=== PATIENT | female | born 1985 | race Caucasian/White ===

== ENCOUNTER 2017-01-20 08:00 | Inpatient (IN) | payer OTHER ==
[~2017-01-20 08:00] MED LIST: ELECTROLYTE-148 SOLN 1,000 ML IV ONE
[2017-01-20] MEDS ORDERED: ELECTROLYTE-148 SOLN 1,000 ML IV SCH (09:00)
[2017-01-20] MEDS ORDERED: CITRIC ACID/SODIUM CITRATE 30 ML UNIT-DOSE CUP PO ONE (09:00)
[2017-01-20 09:02] VITALS: BMI 34.5
--- NOTE | 2017-01-20 09:14 | HP ---
Past Medical History - Admission Chief Complaint: Here for scheduled repeat c section. History of Present Illness: 31 y/o with SIUP at 39.2 weeks gestation here for scheduled repeat c section. EDC 01/25/17 by [facility] ultrasound. Pt with uncomplicated care. History Source: Patient, Medical Record Limitations to Obtaining History: No Limitations - Past Medical History Cardiovascular: No: CAD, HTN Pulmonary: No: Asthma, COPD Gastrointestinal: No: GERD, Irritable Bowel Disease Reproductive: No: Fibroids, PID ...: 4 ...Para: 3 ...Term: 3 ...: 0 ...Spon : 0 ...Induced : 0 ...Multiple Gestation: 0 ...LMP: 04/07/16 ... Weeks Gestation by Dates: 41.1 ...EDC by Dates: 01/12/17 ...EDC by Sono: 01/20/17 Additional OB History: EDC 01/25/17 by [facility] ultrasound. Heme/Onc: No: Anemia, Sickle Cell Disease Infectious Disease: No: HIV, MRSA, STD's Psych: No: Anxiety, Bipolar, Depression ENT: No: Allergic Rhinitis Endocrine: No: Diabetes Mellitus, Hypothyroidism - Past Surgical History Past Surgical History: Yes: None Hx Myomectomy: No Hx Transabdominal Cerclage: No - Smoking History Smoking history: Never smoked Have you smoked in the past 12 months: No Aproximately how many cigarettes per day: 0 - Alcohol/Substance Use Hx Alcohol Use: No History of Substance Use: reports: None - Social History Usual Living Arrangement: Yes: With Spouse ADL: Independent History of Recent Travel: No Home Medications - Allergies Allergies/Adverse Reactions: Allergies Allergy/AdvReac Type Severity Reaction Status Date / Time No Known Allergies Allergy Verified 01/20/17 08:39 - Home Medications Home Medications: Ambulatory Orders Pnv95/Ferrous Fumarate/FA [ Tablet] 1 each PO DAILY 04/25/12 Review of Systems - Review of Systems Constitutional: reports: No Symptoms Eyes: reports: No Symptoms HENT: reports: No Symptoms Neck: reports: No Symptoms Cardiovascular: reports: No Symptoms Respiratory: reports: No Symptoms Gastrointestinal: reports: No Symptoms Genitourinary: reports: No Symptoms Breasts: reports: No Symptoms Reported Musculoskeletal: reports: No Symptoms Integumentary: reports: No Symptoms Neurological: reports: No Symptoms Endocrine: reports: No Symptoms Hematology/Lymphatic: reports: No Symptoms Physical Exam - Maternity Vital Signs: Vital Signs Temperature 98.2 F 01/20/17 08:30 Pulse Rate 102 H 01/20/17 08:30 Respiratory Rate 20 01/20/17 08:30 Blood Pressure 111/69 01/20/17 08:30 O2 Sat by Pulse Oximetry (%) Constitutional: Yes: Well Nourished, No Distress, Calm Eyes: Yes: Conjunctiva Clear, EOM Intact HENT: Yes: Atraumatic, Normocephalic Neck: Yes: Supple, Trachea Midline Cardiovascular: Yes: Regular Rate and Rhythm Lungs: Clear to auscultation - Abdominal Exam/OB Fundal Height: 40 Number of Fetuses: Single Presentation: Vertex Contractions: No Category: I Accelerations: None Decelerations: None - Vaginal Exam/OB Vaginal Bleediing: No Amniotic Membrane Status: Intact Nitrazine Test: Positive Presentation: Vertex/Position - Physical Exam Psychiatric: Yes: Alert, Oriented Hemorrhage Risk Assessment - Risk Factors Medium Risk Factors: Yes: Prior , uterine surgery,or multiple laparotomies High Risk Factors: Yes: None Risk Score: 1 Risk Level: Medium Risk Problem List - Problems (1) Term Code(s): Z34.80 - ENCOUNTER FOR SUPRVSN OF NORMAL , UNSP TRIMESTER (2) Term , repeat Code(s): Z34.90 - ENCNTR FOR SUPRVSN OF NORMAL , UNSP, UNSP TRIMESTER (3) History of delivery Code(s): Z98.891 - HISTORY OF UTERINE SCAR FROM PREVIOUS SURGERY (4) Anemia Code(s): D64.9 - ANEMIA, UNSPECIFIED Assessment/Plan 31 y/o with SIUP at 39.2 weeks here for scheduled repeat c section and tubal sterilization - AFVSS - Hgb 9.6 preop - NPO, SCDs - nursery and anesthesia aware - GBS positive - HIV negative
[2017-01-20] MEDS ORDERED: ONDANSETRON 4 MG/2 ML VIAL IVPB PRN (09:55)
[2017-01-20] MEDS ORDERED: morphine SULFATE/Preservative Free 0.5 MG/ML (1cc Syringe) EP ONE (09:55)
[2017-01-20] MEDS ORDERED: IBUPROFEN 800 MG/8 ML IJ IVPB PRN (09:56)
--- NOTE | 2017-01-20 10:43 | PN ---
Progress Note (short form) - Note Progress Note: Attended C/S for this 31 y/o with SIUP at 39.2 weeks gestation here for scheduled repeat c section. EDC 01/25/17 by [facility] ultrasound. Pt with uncomplicated care. PNL- neg except for GBS= Pos. No ROM/ in Labor cried soon after suctioned/dried cord 3V, score 9/9 PE: infant alert active, no id distress Normocephalic, AFOF, No cleft lip/Palate No heart murmur, B/L good air entry No Organomegaly, nl Male FROM hip exam. Good tone and activity Term male RNBC Watch for resp distress Encourage Bf/ Bonding
[2017-01-20] MEDS ORDERED: TUBERCULIN PPD 5 TU/0.1ML SYRINGE (IN PATIENT USE ONLY) ID ONE (11:00)
[2017-01-20] MEDS ORDERED: METHYLERGONOVINE MALEATE 0.2 MG/1 ML AMP IM PRN (11:07)
[2017-01-20] MEDS ORDERED: oxyCODONE HCL 5 MG TABLET PO PRN (11:07)
[2017-01-20 11:13] LABS: VENOUS BLOOD GAS HCO3 24.8 meq/L (19-25); VENOUS PH 7.37 (7.32-7.42)
[2017-01-20] MEDS: OXYTOCIN 20 UNITS in 0.9% NS 1,000 ML IV SCH ×2 (11:15→17:39)
--- NOTE | 2017-01-20 11:26 | OP ---
Operative Note - Note: Operative Date: 01/20/17 Pre-Operative Diagnosis: Prior delivery x 3, single IUP, desires sterilization Operation: repeat delivery, bilateral salpingectomy Findings: lower uterine segment window normal b/l tubes and ovaries Post-Operative Diagnosis: Same as Pre-op Surgeon: Monse Marie Electronic Transaction Implementer: Linda Briggs Anesthesiologist/MAINTENANCE TECHNICIAN 3RD SHIFT: Dom Tello Anesthesia: Spinal Specimens Removed: bilateral fallopian tubes. placenta Estimated Blood Loss (mls): 600 Operative Report Dictated: Yes
[2017-01-20] MEDS: IBUPROFEN 800 MG/8 ML IJ IVPB PRN (15:02)
[2017-01-20] MEDS: FERROUS SO4 325 MG TABLET (FP) PO SCH (23:36)
[2017-01-21] MEDS: IBUPROFEN 800 MG/8 ML IJ IVPB PRN (01:05)
--- NOTE | 2017-01-21 06:32 | PN ---
Progress Note (SOAP) - Subjective Chief Complaint: Pt doing well - Current Medications Current Medications: Active Medications Acetaminophen (Tylenol -) 650 mg PO Q4H PRN PRN Reason: FEVER OR PAIN Bisacodyl (Dulcolax Suppository -) 10 mg RC PRN PRN PRN Reason: CONSTIPATION Diphenhydramine HCl (Benadryl Injection -) 25 mg IVPUSH Q4H PRN PRN Reason: Pruritis Diphtheria/Tetanus/Acell Pertussis (Boostrix -) 0.5 ml IM .ONCE ONE Stop: 01/21/17 10:01 Ferrous Sulfate (Feosol -) 325 mg PO BID [facility] Last Admin: 01/20/17 23:36 Dose: Not Given Parenteral Electrolytes (Plasma-Lyte 148 -) 1,000 mls @ 125 mls/hr IV ASDIR [facility] Last Admin: 01/20/17 09:50 Dose: 125 mls/hr Oxytocin/Sodium Chloride (Normal Saline+20 Units Oxytocin -) 1,000 mls @ 125 mls/hr IV ASDIR [facility] Last Admin: 01/20/17 17:39 Dose: 125 mls/hr Ibuprofen (Caldolor Injection -) 600 mg IVPB Q8H PRN PRN Reason: FEVER Ibuprofen (Motrin -) 600 mg PO Q4H PRN PRN Reason: PAIN Ibuprofen (Caldolor Injection -) 800 mg IVPB Q8H PRN PRN Reason: PAIN OR FEVER Last Admin: 01/21/17 01:05 Dose: 800 mg Methylergonovine Maleate (Methergine Injection -) 0.2 mg IM Q4H PRN PRN Reason: Excessive Bleeding (L&D) Oxycodone HCl (Roxicodone -) 5 mg PO Q4H PRN PRN Reason: PAIN LEVEL 1-5 Oxycodone HCl (Roxicodone -) 10 mg PO Q4H PRN PRN Reason: PAIN LEVEL 6-10 Multivit/Folic Acid/Iron ( Vitamins (Sjr) -) 1 tab PO DAILY [facility] Simethicone (Mylicon -) 80 mg PO Q4H PRN PRN Reason: GAS - Objective Vital Signs: Vital Signs Temperature 98.0 F 01/21/17 06:00 Pulse Rate 73 01/21/17 06:00 Respiratory Rate 18 01/21/17 06:00 Blood Pressure 97/44 01/21/17 06:00 O2 Sat by Pulse Oximetry (%) 100 01/20/17 12:30 Constitutional: Yes: Well Nourished, No Distress Gastrointestinal: Yes: WNL, Normal Bowel Sounds Breast(s): Yes: WNL Musculoskeletal: Yes: WNL Extremities: Yes: WNL Edema: No Wound/Incision: Yes: Clean/Dry, Dressing Dry and Intact Neurological: Yes: WNL, Alert, Oriented Problem List - Problems (1) History of delivery Code(s): Z98.891 - HISTORY OF UTERINE SCAR FROM PREVIOUS SURGERY Assessment/Plan SP CS repeat POD 1 Plan oob percocet prn
[2017-01-21] MEDS: SIMETHICONE 80 MG TAB.CHEW (FP) PO PRN ×3 (07:40→21:33)
[2017-01-21] MEDS: ACETAMINOPHEN 325 MG TABLET (FP) PO PRN ×3 (07:40→21:35)
[2017-01-21] MEDS: IBUPROFEN 600 MG TABLET (FP) PO PRN ×3 (07:41→21:33)
[2017-01-21 07:59] LABS: BASOPHIL 0.6 % (0-2.0); EOSINOPHIL 1.8 % (0-4.5); MCH 27.3 pg (25.7-33.7); MCHC 32.7 g/dl (32.0-36.0); MEAN CELL VOLUME 83.5 fl (80-96); MEAN PLT VOLUME 8.7 fl (7.5-11.1); NEUTROPHILS 71.5 % (42.8-82.8); PLATELET COUNT 153 K/MM3 (134-434); RDW 13.8 % (11.6-15.6); WHITE BLOOD COUNT 7.4 K/mm3 (4.0-10.0)
--- NOTE | 2017-01-21 09:21 | PN ---
Progress Note (short form) - Note Progress Note: ANESTHESIOLOGY POST-OP CHECK 31F s/p under spinal anesthesia, POD #1. No acute complaints. Pain 5/ 10 and tolerable. Tolerating PO, ambulating, voiding, denies N/V, headache. Vital Signs Temperature 98.0 F 01/21/17 06:00 Pulse Rate 73 01/21/17 06:00 Respiratory Rate 18 01/21/17 06:00 Blood Pressure 97/44 01/21/17 06:00 O2 Sat by Pulse Oximetry (%) 100 01/20/17 12:30 Active Medications Acetaminophen (Tylenol -) 650 mg PO Q4H PRN PRN Reason: FEVER OR PAIN Last Admin: 01/21/17 07:40 Dose: 650 mg Bisacodyl (Dulcolax Suppository -) 10 mg RC PRN PRN PRN Reason: CONSTIPATION Diphenhydramine HCl (Benadryl Injection -) 25 mg IVPUSH Q4H PRN PRN Reason: Pruritis Diphtheria/Tetanus/Acell Pertussis (Boostrix -) 0.5 ml IM .ONCE ONE Stop: 01/21/17 10:01 Ferrous Sulfate (Feosol -) 325 mg PO BID [facility] Last Admin: 01/20/17 23:36 Dose: Not Given Parenteral Electrolytes (Plasma-Lyte 148 -) 1,000 mls @ 125 mls/hr IV ASDIR [facility] Last Admin: 01/20/17 09:50 Dose: 125 mls/hr Oxytocin/Sodium Chloride (Normal Saline+20 Units Oxytocin -) 1,000 mls @ 125 mls/hr IV ASDIR [facility] Last Admin: 01/20/17 17:39 Dose: 125 mls/hr Ibuprofen (Caldolor Injection -) 600 mg IVPB Q8H PRN PRN Reason: FEVER Ibuprofen (Motrin -) 600 mg PO Q4H PRN PRN Reason: PAIN Last Admin: 01/21/17 07:41 Dose: 600 mg Ibuprofen (Caldolor Injection -) 800 mg IVPB Q8H PRN PRN Reason: PAIN OR FEVER Last Admin: 01/21/17 01:05 Dose: 800 mg Methylergonovine Maleate (Methergine Injection -) 0.2 mg IM Q4H PRN PRN Reason: Excessive Bleeding (L&D) Oxycodone HCl (Roxicodone -) 5 mg PO Q4H PRN PRN Reason: PAIN LEVEL 1-5 Oxycodone HCl (Roxicodone -) 10 mg PO Q4H PRN PRN Reason: PAIN LEVEL 6-10 Multivit/Folic Acid/Iron ( Vitamins (Sjr) -) 1 tab PO DAILY [facility] Simethicone (Mylicon -) 80 mg PO Q4H PRN PRN Reason: GAS Last Admin: 01/21/17 07:40 Dose: 80 mg Gen: awake, alert, NAD No apparent anesthesia complications. Pain controlled. Continue management as per primary team.
[2017-01-21] MEDS: PRENATAL VITAMINS W/ FOLIC ACID TABLET (FP) PO SCH (09:30)
[2017-01-21] MEDS: FERROUS SO4 325 MG TABLET (FP) PO SCH ×2 (10:00→21:24)
[2017-01-21] MEDS ORDERED: DIPHTH,PERTUSS(ACELL),TET 0.5 ML DISP.SYRIN IM ONE (10:00)
--- NOTE | 2017-01-21 10:06 | OP ---
DATE OF OPERATION: 01/20/2017 PREOPERATIVE DIAGNOSIS: Prior delivery x3 and desire for permanent sterilization. POSTOPERATIVE DIAGNOSIS: Prior delivery x3 and desire for permanent sterilization. PROCEDURE: Repeat low transverse section with bilateral salpingectomy. SURGEON: Monse Marie MD [employer]: Linda Briggs MD FINDINGS: Include lower uterine segment window, otherwise normal intrapelvic anatomy. ESTIMATED BLOOD LOSS: 600 mL. COMPLICATIONS: None. DISPOSITION: Stable. BRIEF HISTORY AND PROCEDURE: Patient is a female with 3 prior sections who was admitted [facility] on January 20, 2017, for scheduled repeat low transverse . Consent for the procedure was signed upon admission as well as the procedure for a bilateral salpingectomy as the patient desired permanent sterilization. The patient was taken to the operating room and she was given spinal anesthesia by Dr. Tello, placed in the dorsal supine position on the operating room table. Monte catheter was placed under sterile conditions. She was then prepped and draped in the usual sterile fashion, and hard time-out was performed. A Pfannenstiel skin incision was created in the skin with a scalpel and carried to the underlying layer of rectus fascia with the scalpel. Deep fascia was incised on either side of the midline with the scalpel, and the fascial incision was carried in superior lateral direction with the Bovie. The fascia was tented upwards and dissected off the underlying layer of rectus muscle with the Bovie. The peritoneum was entered sharply after the muscles were retracted, and the muscles and the peritoneum were carefully dissected sharply to allow for adequate room for delivery. A large lower uterine segment window was noted. At this time, the bladder was dissected off the lower portion of the uterus, the bladder blade was inserted, and an incision was created above the uterine window, which was extended in superior lateral direction bluntly. The infant was then delivered from the left occiput transverse position. Bilateral shoulders were delivered with ease along with the remainder of the infant. The cord was clamped twice and cut in between. After delayed cord clamping was completed, the infant was then taken to the warmer to be assessed by the neonatology staff who were present through the entire procedure. Placenta was then delivered intact and manually extracted. The uterus was exteriorized from the abdomen, inspected, and cleared of all amniotic membrane and debris with a dry lap sponge. The hysterotomy was reapproximated in a single-layer closure using No. 1 Biosyn suture in a running locked fashion. Fallopian tubes were identified. The right fallopian tube was tented upwards and dissected off the attachment to the uterus, ovary, and mesosalpinx using the LigaSure device. The tube was sent to Pathology for permanent evaluation. The same was repeated with the left fallopian tube. Both fallopian tubes were removed in their entirety. Salpingectomy sites were noted to be hemostatic. The uterus was placed back into the abdomen. Amniotic fluid, blood clot, and debris were removed from the bilateral gutters. The hysterotomy was again reinspected and noted to be hemostatic. The peritoneum was reapproximated in a running fashion using Biosyn suture, and the was reapproximated, and the fascia was reapproximated using 0 Vicryl suture in a running fashion. The subcutaneous tissue was irrigated, and the bleeding was cauterized with the Bovie device, and subcutaneous tissue was reapproximated using Biosyn suture in a running fashion, and the skin was reapproximated using 3-0 Vicryl in a subcuticular fashion. Steri-Strips were applied. The patient tolerated the procedure well, recovered in stable condition in the recovery room of labor and delivery at the time of this dictation. MONSE MARIE DO /[id number]
[2017-01-21] MEDS ORDERED: BISACODYL 10 MG SUPP.RECT RC PRN (11:07)
[2017-01-21] MEDS: oxyCODONE HCL 5 MG TABLET PO PRN (17:06)
[2017-01-22] MEDS: oxyCODONE HCL 5 MG TABLET PO PRN ×4 (00:13→20:31)
[2017-01-22] MEDS ORDERED: SENNOSIDES/DOCUSATE COMBO (SENNA PLUS) TABLET (UD) PO PRN (04:14)
--- NOTE | 2017-01-22 05:18 | PN ---
Progress Note (SOAP) - Subjective Chief Complaint: Pt doing well - Current Medications Current Medications: Active Medications Acetaminophen (Tylenol -) 650 mg PO Q4H PRN PRN Reason: FEVER OR PAIN Last Admin: 01/21/17 21:35 Dose: 650 mg Bisacodyl (Dulcolax Suppository -) 10 mg RC PRN PRN PRN Reason: CONSTIPATION Diphenhydramine HCl (Benadryl Injection -) 25 mg IVPUSH Q4H PRN PRN Reason: Pruritis Ferrous Sulfate (Feosol -) 325 mg PO BID [facility] Last Admin: 01/21/17 21:24 Dose: 325 mg Parenteral Electrolytes (Plasma-Lyte 148 -) 1,000 mls @ 125 mls/hr IV ASDIR [facility] Last Admin: 01/20/17 09:50 Dose: 125 mls/hr Oxytocin/Sodium Chloride (Normal Saline+20 Units Oxytocin -) 1,000 mls @ 125 mls/hr IV ASDIR [facility] Last Admin: 01/20/17 17:39 Dose: 125 mls/hr Ibuprofen (Caldolor Injection -) 600 mg IVPB Q8H PRN PRN Reason: FEVER Ibuprofen (Motrin -) 600 mg PO Q4H PRN PRN Reason: PAIN Last Admin: 01/21/17 21:33 Dose: 600 mg Ibuprofen (Caldolor Injection -) 800 mg IVPB Q8H PRN PRN Reason: PAIN OR FEVER Last Admin: 01/21/17 01:05 Dose: 800 mg Methylergonovine Maleate (Methergine Injection -) 0.2 mg IM Q4H PRN PRN Reason: Excessive Bleeding (L&D) Oxycodone HCl (Roxicodone -) 5 mg PO Q4H PRN PRN Reason: PAIN LEVEL 1-5 Oxycodone HCl (Roxicodone -) 10 mg PO Q4H PRN PRN Reason: PAIN LEVEL 6-10 Last Admin: 01/22/17 00:13 Dose: 10 mg Multivit/Folic Acid/Iron ( Vitamins (Sjr) -) 1 tab PO DAILY [facility] Last Admin: 01/21/17 09:30 Dose: 1 tab Senna/Docusate Sodium (Pericolace -) 2 tablet PO HS PRN Simethicone (Mylicon -) 80 mg PO Q4H PRN PRN Reason: GAS Last Admin: 01/21/17 21:33 Dose: 80 mg - Objective Vital Signs: Vital Signs Temperature 98.1 F 01/21/17 21:03 Pulse Rate 75 01/21/17 21:03 Respiratory Rate 20 01/21/17 21:03 Blood Pressure 128/68 01/21/17 21:03 O2 Sat by Pulse Oximetry (%) 100 01/21/17 20:55 Constitutional: Yes: Well Nourished, No Distress HENT: Yes: WNL Gastrointestinal: Yes: WNL ...Rectal Exam: Yes: WNL ....Post : Yes: Uterus firm, Uterus non-tender Extremities: Yes: WNL Wound/Incision: Yes: Steri Strips, Open to air, Dressing Removed Labs Lab Results: CBC, BMP 01/21/17 06:00 Problem List - Problems (1) History of delivery Code(s): Z98.891 - HISTORY OF UTERINE SCAR FROM PREVIOUS SURGERY Assessment/Plan SP CS repeat POD 2 Plan oob percocet prn
--- NOTE | 2017-01-22 05:19 | PN ---
Progress Note (SOAP) - Subjective Chief Complaint: Pt doing well - Current Medications Current Medications: Active Medications Acetaminophen (Tylenol -) 650 mg PO Q4H PRN PRN Reason: FEVER OR PAIN Last Admin: 01/21/17 21:35 Dose: 650 mg Bisacodyl (Dulcolax Suppository -) 10 mg RC PRN PRN PRN Reason: CONSTIPATION Diphenhydramine HCl (Benadryl Injection -) 25 mg IVPUSH Q4H PRN PRN Reason: Pruritis Ferrous Sulfate (Feosol -) 325 mg PO BID [facility] Last Admin: 01/21/17 21:24 Dose: 325 mg Parenteral Electrolytes (Plasma-Lyte 148 -) 1,000 mls @ 125 mls/hr IV ASDIR [facility] Last Admin: 01/20/17 09:50 Dose: 125 mls/hr Oxytocin/Sodium Chloride (Normal Saline+20 Units Oxytocin -) 1,000 mls @ 125 mls/hr IV ASDIR [facility] Last Admin: 01/20/17 17:39 Dose: 125 mls/hr Ibuprofen (Caldolor Injection -) 600 mg IVPB Q8H PRN PRN Reason: FEVER Ibuprofen (Motrin -) 600 mg PO Q4H PRN PRN Reason: PAIN Last Admin: 01/21/17 21:33 Dose: 600 mg Ibuprofen (Caldolor Injection -) 800 mg IVPB Q8H PRN PRN Reason: PAIN OR FEVER Last Admin: 01/21/17 01:05 Dose: 800 mg Methylergonovine Maleate (Methergine Injection -) 0.2 mg IM Q4H PRN PRN Reason: Excessive Bleeding (L&D) Oxycodone HCl (Roxicodone -) 5 mg PO Q4H PRN PRN Reason: PAIN LEVEL 1-5 Oxycodone HCl (Roxicodone -) 10 mg PO Q4H PRN PRN Reason: PAIN LEVEL 6-10 Last Admin: 01/22/17 00:13 Dose: 10 mg Multivit/Folic Acid/Iron ( Vitamins (Sjr) -) 1 tab PO DAILY [facility] Last Admin: 01/21/17 09:30 Dose: 1 tab Senna/Docusate Sodium (Pericolace -) 2 tablet PO HS PRN Simethicone (Mylicon -) 80 mg PO Q4H PRN PRN Reason: GAS Last Admin: 01/21/17 21:33 Dose: 80 mg - Objective Vital Signs: Vital Signs Temperature 98.1 F 01/21/17 21:03 Pulse Rate 75 01/21/17 21:03 Respiratory Rate 20 01/21/17 21:03 Blood Pressure 128/68 01/21/17 21:03 O2 Sat by Pulse Oximetry (%) 100 01/21/17 20:55 Constitutional: Yes: Well Nourished, No Distress Respiratory: Yes: WNL Gastrointestinal: Yes: WNL, Normal Bowel Sounds ...Rectal Exam: Yes: WNL Labs Lab Results: CBC, BMP 01/21/17 06:00 Problem List - Problems (1) History of delivery Code(s): Z98.891 - HISTORY OF UTERINE SCAR FROM PREVIOUS SURGERY
[2017-01-22] MEDS: ACETAMINOPHEN 325 MG TABLET (FP) PO PRN ×3 (07:53→20:31)
[2017-01-22] MEDS: SIMETHICONE 80 MG TAB.CHEW (FP) PO PRN ×3 (07:54→20:30)
[2017-01-22] MEDS: FERROUS SO4 325 MG TABLET (FP) PO SCH ×2 (09:25→21:04)
[2017-01-22] MEDS: PRENATAL VITAMINS W/ FOLIC ACID TABLET (FP) PO SCH (09:25)
[2017-01-23 08:40] LABS: BASOPHIL 0.4 % (0-2.0); EOSINOPHIL 2.4 % (0-4.5); MCH 27.1 pg (25.7-33.7); MCHC 32.5 g/dl (32.0-36.0); MEAN CELL VOLUME 83.4 fl (80-96); MEAN PLT VOLUME 7.9 fl (7.5-11.1); NEUTROPHILS 68.2 % (42.8-82.8); PLATELET COUNT 204 K/MM3 (134-434); RDW 14.4 % (11.6-15.6)
[2017-01-23] MEDS: FERROUS SO4 325 MG TABLET (FP) PO SCH (09:11)
[2017-01-23] MEDS: PRENATAL VITAMINS W/ FOLIC ACID TABLET (FP) PO SCH (09:12)
[2017-01-23] MEDS: SIMETHICONE 80 MG TAB.CHEW (FP) PO PRN (09:17)
[2017-01-23] MEDS: IBUPROFEN 600 MG TABLET (FP) PO PRN (09:17)
[2017-01-23] MEDS: ACETAMINOPHEN 325 MG TABLET (FP) PO PRN (09:18)
[2017-01-23 12:31] VITALS: BP 112/74; PULSE 64; TEMP 98.3
--- NOTE | 2017-01-23 12:40 | DS ---
Physical Exam-ASSISTANT PRINCIPAL Vital Signs: Vital Signs Temperature 98.3 F 01/23/17 10:00 Pulse Rate 64 01/23/17 10:00 Respiratory Rate 18 01/23/17 10:00 Blood Pressure 112/74 01/23/17 10:00 O2 Sat by Pulse Oximetry (%) 100 01/21/17 20:55 Labs: CBC, BMP 01/23/17 07:45 Delivery - Delivery Type of Anesthesia: Spinal Episiotomy/Laceration: None EBL (cc): 600 Delivery, Single - Stages of Labor Date of Delivery: 01/20/17 Time of Delivery: 10:28 Time Placenta Delivered: 10:29 - Condition of Superintendent [employer]/Geospatial Analyst Present: Yes Name: Dennis Márquez Infant Gender: Male Weight: 8 lb 2 oz Position: Left, OT Total Hours ROM (Hrs/Mins): 0/2 - 1 Minute Total Score: 9 5 Minutes Total Score: 9 - Luana Feeding Plan Initial Plan: Elected not to breastfeed exclusively throughout hospitalization Discharge Summary Reason For Visit: C/SECTION Current Active Problems Anemia (Acute) History of delivery (Acute) Term (Acute) Term , repeat (Acute) Condition: Good - Instructions Diet, Activity, Other Instructions: Physical activity Resume your normal everyday activity as tolerated but no heavy lifting or strenuous exercise until seen by your surgeon. You may walk unlimited amounts and climb stairs. You may resume driving the car when you feel safe and comfortable behind the wheel. No sexual activity as instructed. Wound care If there are tapes on the skin leave them in place. They will peel off in the next 7 to 10 days. Do Not Peel them off. You may shower the day after surgery. If there are tapes present on the skin, you may shower over them. Diet There are no dietary restrictions. Eat healthy, high-fiber foods. Drink 6 to 8 glasses of liquid each day. This will assist in keeping your bowels regular. Pain management You may take Tylenol or Ibuprofen (for example, Motrin, Advil etc.) over the counter for pain. If any pain prescription is sent to your pharmacy, please take for moderate to severe pain as directed. Call MD for any of the following: Severe pain not relieved by medication Fever of 101 or higher Excessive bleeding or drainage on dressing Inability to urinate Referrals: Monse Marie DO [Staff Physician] - 2 Weeks Disposition: HOME - Home Medications Comprehensive Discharge Medication List: Ambulatory Orders Pnv95/Ferrous Fumarate/FA [ Tablet] 1 each PO DAILY 04/25/12 Ibuprofen [Motrin -] 600 mg PO QID PRN #28 tablet 01/22/17
== END 2017-01-23 13:30 | disposition home or self-care (01) | DRG 540 ==
LOC: JLDR 08:00 → J3W 12:47
PROVIDERS: ADMIT Obstetrics & Gynecology; ATTEND Obstetrics & Gynecology
PROC: 10D00Z1 Extraction of Products of Conception, Low, Open Approach (ICD-10-PCS; principal; 2017-01-20)
PROC: 0UT70ZZ Resection of Bilateral Fallopian Tubes, Open Approach (ICD-10-PCS; 2017-01-20)
DX: O34.211 Maternal care for low transverse scar from previous cesarean delivery (principal); O99.824 Streptococcus B carrier state complicating childbirth; Z3A.39 39 weeks gestation of pregnancy; Z37.0 Single live birth
CPT/HCPCS: 36415; 82803; 85025; 88302-TC; 90715; 94010

== ENCOUNTER 2018-12-17 22:42 | Emergency (ER) | payer OTHER ==
[2018-12-17 23:19] VITALS: BMI 32.9
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
[2018-12-18] MEDS ORDERED: LIDOCAINE HCL 1%, 10 MG/ML (20ML VIAL) ONE (01:37)
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
[2018-12-18] MEDS ORDERED: LIDOCAINE HCL 1%, 10 MG/ML (50 mL VIAL) SQ ONE (02:13)
[2018-12-18 02:29] VITALS: BP 128/72; PULSE 88; TEMP 98.6
== END 2018-12-18 02:29 | disposition home or self-care (01) ==
LOC: JER 22:42
PROC: 0HQFXZZ Repair Right Hand Skin, External Approach (ICD-10-PCS; principal; 2018-12-17)
PROC: 3E013BZ Introduction of Anesthetic Agent into Subcutaneous Tissue, Percutaneous Approach (ICD-10-PCS; 2018-12-17)
DX: S61.411A Laceration without foreign body of right hand, initial encounter (principal); W25.XXXA Contact with sharp glass, initial encounter; Y93.89 Activity, other specified; Y92.89 Other specified places as the place of occurrence of the external cause; Y99.8 Other external cause status
CPT/HCPCS: 12011; 73130-TC-RT-FY; 96372; 99282-25